=== PATIENT | female | born 1965 | race Two or more races ===

== ENCOUNTER 2017-09-03 11:55 | Emergency (ER) | payer SELFPAY ==
[2017-09-03 12:06] VITALS: BP 137/78; BMI 45.0
--- NOTE | 2017-09-03 12:19 | DR.GENAD ---
HPI - PCP Primary Care Physician: nfd - HPI Comment HPI Comment: WORSE TODAY. WENT TO THE MEDICAL CLINIC FOR EVALUATION OF HIGH CHOLESTEROL AND HIGH BP. URINE AND BLOOD WORK DONE. TOLD THE LIVER MAY BE INFLAME. WANT THIS EVALUATED ALSO. PATIENTS DAUGHTER ON THE PHONE AND INTERPRETING FOR. PATIENT SPEACH SINHALA. - Complaint/Symptoms Chief Complaint Doctors Comments: ABDOMINAL BLOATING AND REFLUX FOR SEVERAL WEEKS. Chief Complaint:: pt stated she was seen at a clinic and was told her liver was inlarged and her blood sugar was high. she stated she wanted to see how inlarged her liver was. she seen the clinic last month, she stated she does not have a family doctor. - Nurses notes reviewed Nurses Notes Review: Yes - Source History Provided: Patient - Mode of Arrival Mode of Arrival: Ambulatory - Timing Onset of Chief Complaint: 08/14/17 Came on: Gradually - Duration Duration: Constant Duration: Weeks - Severity Severity: Moderate PMH - PMH Past Medical History: No Past Surgical History: No Surgical History: Hysterectomy - Family History History of Family Medical Conditions: Yes Family Medical History: Hypertension - Social History Does patient currently use any type of tobacco product: No Have you used tobacco products in the last 12 months: No Type of Tobacco Use: None Does any household member use tobacco: No Do you use any recreational Drugs:: No Lives With: Family Lives Where: Home - infectious screening In the last 2 months have you had wt loss of >10#?: NO Have you had fever, night sweats or hemotysis?: No Have you traveled outside the country in the last 6 months?: No Isolation: Standard ROS - Review of Systems Constitutional: Weakness, Fatigue. negative: Chills, Fever, Loss of Appetite Eyes: No Symptoms Reported ENTM: No Symptoms Reported Respiratoy: No Symptoms Reported Cardiovascular: No Symptoms Reported Gastrointestinal/Abdominal: Abdominal Pain, Nausea Genitourinary: No Symptoms Reported Neurological: No Symptoms Reported Musculoskeletal: No Symptoms Reported Integumentary: No Symptoms Reported Hematologic/Lymphatic: No Symptoms Reported All Other Systems: Reviewed and Negative PE - Vital Signs Vitals: Temperature 98.4 F Pulse Rate 67 Respiratory Rate 16 Blood Pressure 137/78 O2 Sat by Pulse Oximetry 99 - General Limitations: No Limitations General Appearance: Alert - Head Head Exam: Normal Inspection - Eyes Eye exam: Normal Appearance - ENT ENT Exam: Normal External Ear Exam External Ear Exam: Normal External Inspection TM/Canal Exam: Bilateral Normal Nose Exam: Normal Nose Exam Mouth Exam: Normal Inspection Throat Exam: Normal Inspection - Neck Neck Exam: Normal Inspection - Chest Chest Inspection: Symmetric Chest Wall Rise - Respiratory Respiratory Exam: Normal Lung Sounds Bilat Respiratory Exam: Bilateral Clear to Auscultation - Cardiovascular Cardiovascular Exam: Regular Rate, Normal Rhythm, Normal Heart Sounds - Abdominal Exam Abdominal Exam: Normal Bowel Sounds, Soft, Tenderness Abdominal Tenderness: Epigastrium - Extremities Extremities Exam: Normal Inspection - Back Back Exam: Normal Inspection - Neurologic Neurological Exam: Alert, Oriented X3 - Psychiatric Psychiatric Exam: Normal Affect, Normal Mood - Skin Skin Exam: Normal Color [facility] - Additional Information Additional Information Obtained From: Family - Differential Diagnosis Differential Diagnosis: ABDOMINA,N PAIN, ABNOERMAL LAB, PUB, BOWEL OBSTRUCTION Course - Treatment Treatment: SEE ORDERS. - Education/Counseling Education/Counseling: Patient, Family, Education Educated On: Diagnosis, Needs for Follow Up ROR - Labs Reviewed Laboratory Results Reviewed?: Yes Result Diagrams: 09/03/17 12:45 09/03/17 12:45 Laboratory: WBC 9.6 X10^3/uL (3.6-10.0) 09/03/17 12:45 RBC 5.06 X10^6/uL (3.5-5.4) 09/03/17 12:45 Hgb 13.8 g/dL (12.0-16.0) 09/03/17 12:45 Hct 40.6 % (36.0-47.0) 09/03/17 12:45 MCV 80.2 fL (80.0-100.0) 09/03/17 12:45 MCH 27.3 pg (27.0-34.0) 09/03/17 12:45 MCHC 34.1 g/dL (33.0-35.0) 09/03/17 12:45 RDW 13.2 % (11.6-16.5) 09/03/17 12:45 Plt Count 279 X10^3/uL (150.0-450.0) 09/03/17 12:45 MPV 8.9 fL (7.4-11.0) 09/03/17 12:45 Neut % 47.4 % (42.0-75.0) 09/03/17 12:45 Lymph % 42.7 % (21.0-51.0) 09/03/17 12:45 [place] % 6.9 % (0.0-13.0) 09/03/17 12:45 Eos % 2.2 % (0.9-2.9) 09/03/17 12:45 Baso % 0.8 % (0.2-1.0) 09/03/17 12:45 Neut # 4.6 x10^3/uL (2.2-4.8) 09/03/17 12:45 Lymph # 4.1 X10^3/uL (1.3-2.9) H 09/03/17 12:45 [place] # 0.7 x10^3/uL (0.3-0.8) 09/03/17 12:45 Eos # 0.2 x10^3/uL (0.0-0.2) 09/03/17 12:45 Baso # 0.1 X10^3/uL (0.0-0.1) 09/03/17 12:45 Absolute Nucleated RBC 0.0 /100WBC 09/03/17 12:45 Sodium 140 mmol/L (136-145) 09/03/17 12:45 Corrected Sodium TNP 09/03/17 12:45 Potassium 3.8 mmol/L (3.5-5.1) 09/03/17 12:45 Chloride 101 mmol/L (98-107) 09/03/17 12:45 Carbon Dioxide 31.1 mmol/L (21-32) 09/03/17 12:45 BUN 19 mg/dL (7-18) H 09/03/17 12:45 Creatinine 0.57 mg/dL (0.55-1.02) 09/03/17 12:45 Est GFR (MDRD) Af Amer > 60 (>60) 09/03/17 12:45 Est GFR (MDRD) Non-Af > 60 (>60) 09/03/17 12:45 Glucose 96 mg/dL (65-99) 09/03/17 12:45 Calcium 8.6 mg/dL (8.5-10.1) 09/03/17 12:45 Corrected Calcium TNP 09/03/17 12:45 Total Bilirubin 1.90 mg/dL (0.2-1.0) H 09/03/17 12:45 AST 26 Units/L (15-37) 09/03/17 12:45 ALT 46 Units/L (12-78) 09/03/17 12:45 Alkaline Phosphatase 103 Units/L (46-116) 09/03/17 12:45 Total Protein 8.5 g/dL (6.4-8.2) H 09/03/17 12:45 Albumin 4.0 g/dL (3.4-5.0) 09/03/17 12:45 Globulin 4.5 g/dL (2.5-4.5) 09/03/17 12:45 Albumin/Globulin Ratio 0.9 Ratio (1.1-2.1) L 09/03/17 12:45 H. pylori IgG Antibody Positive (NEGATIVE) A 09/03/17 12:45 - XRAY XRAY Interpreted by: Radiologist XRAY Findings: REPORT DISCUSS WITH PATIENT AND FAMILY. - Diagnosis Discharge Problem: Helicobacter pylori ab+, Abdominal pain - Discharge Plan Disposition: 01 HOME, SELF-CARE Condition: Stable Prescriptions: Lansoprazole/Amoxiciln/Clarith [PrevPac 14-day pack] 1 dose PO BID #1 pkg - Follow ups/Referrals Follow ups/Referrals: NFD,None [Primary Care Provider] - 2 days SHELLIE MARTINEZ [STAFF PHYSICIAN] - 2 days - Instructions Instructions: Abdominal Pain, Adult, [id number], Helicobacter Pylori Antibodies Test Additional Instructions: RETURN TO ED IF WORSE.
[2017-09-03 13:00] LABS: BASOPHILS # (AUTO) 0.1 X10^3/uL (0.0-0.1); BASOPHILS % (AUTO) 0.8 % (0.2-1.0); EOSINOPHILS # (AUTO) 0.2 x10^3/uL (0.0-0.2); EOSINOPHILS % (AUTO) 2.2 % (0.9-2.9); HEMATOCRIT 40.6 % (36.0-47.0); HEMOGLOBIN 13.8 g/dL (12.0-16.0); LYMPHOCYTES # (AUTO) 4.1 X10^3/uL (1.3-2.9); LYMPHOCYTES % (AUTO) 42.7 % (21.0-51.0); MEAN CORPUSCULAR HEMOGLOBIN 27.3 pg (27.0-34.0); MEAN CORPUSCULAR HGB CONC 34.1 g/dL (33.0-35.0); MEAN CORPUSCULAR VOLUME 80.2 fL (80.0-100.0); MEAN PLATELET VOLUME 8.9 fL (7.4-11.0); MONOCYTES # (AUTO) 0.7 x10^3/uL (0.3-0.8); MONOCYTES % (AUTO) 6.9 % (0.0-13.0); NEUTROPHILS # (AUTO) 4.6 x10^3/uL (2.2-4.8); NEUTROPHILS % (AUTO) 47.4 % (42.0-75.0); PLATELET COUNT 279 X10^3/uL (150.0-450.0); RED BLOOD COUNT 5.06 X10^6/uL (3.5-5.4); RED CELL DISTRIBUTION WIDTH 13.2 % (11.6-16.5); WHITE BLOOD COUNT 9.6 X10^3/uL (3.6-10.0)
[2017-09-03 13:28] LABS: ALANINE AMINOTRANSFERASE 46 Units/L (12-78); ALKALINE PHOSPHATASE 103 Units/L (46-116); ASPARTATE AMINO TRANSFERASE 26 Units/L (15-37); BLOOD UREA NITROGEN 19 mg/dL (7-18); CALCIUM 8.6 mg/dL (8.5-10.1); CARBON DIOXIDE 31.1 mmol/L (21-32); CHLORIDE 101 mmol/L (98-107); CREATININE 0.57 mg/dL (0.55-1.02); SODIUM 140 mmol/L (136-145); TOTAL PROTEIN 8.5 g/dL (6.4-8.2); eGFR BLACK RACES > 60 (>60); eGFR NON BLACK RACES > 60 (>60)
--- NOTE | 2017-09-03 14:41 | RAD ---
HISTORY: Epigastric pain Study: Acute abdominal series Comparison: None Findings: The trachea is midline. The cardiac silhouette is unremarkable. The lungs are clear without focal i nfiltrate or effusion. The bony thorax is unremarkable. Flat plate and upright evaluation of the abdomen demonstrates a normal bowel gas pattern. No patholo gical soft tissue mass or calcification can be observed. The bony structures are grossly intact. IMPRESSION: 1. No acute cardiopulmonary disease. 2. No evidence for acute abdominal pathology identified. Reported By:
== END 2017-09-03 15:05 | disposition home or self-care (01) ==
LOC: ER 12:10
DX: R10.84 Generalized abdominal pain (principal); B96.81 Helicobacter pylori [H. pylori] as the cause of diseases classified elsewhere
CPT/HCPCS: 36415; 74022; 80053; 85025; 86677; 99282; 99284